=== PATIENT | female | born 1935 | race Caucasian/White ===

== ENCOUNTER → 2017-10-15 | Day surgery (SDC) | payer MEDICARE, MEDICAID ==
[~2017-10-15] VITALS: Ht 160 cm; Wt 96.3 kg
[2017-10-15] VITALS (14 sets, daily range): BP systolic 120–159; BP diastolic 53–82
[~2017-10-15] MED LIST: ACET-1025 PO; CALC-829 PO; CHOL200074 PO; CITA10TA9 PO; COENZYME Q10 PO; DEC4T PO; DOCU-28 PO; DOCU100C40 PO; ENOX40SY7 SQ; ESOM40CA PO; FLUT250D IH; FURO-150 PO; GABA-530 PO; GLIM1TAB46 PO; HC A30CR2 RC; HYDR-569 PO; LETR2.5T23 PO; LORA-512 PO; LORA10TA7 PO; MAGN250T11 PO; METO25TA6 PO; METO50TA17 PO; MIDAZolam 5mg/ml 2ml vial IV ONE; NITR0.4T48 SL; OMEG-182 PO; PROC5TAB56 PO; ROPI0.5T2 PO; ROPI1TAB4 PO; ROSU40TA PO; SPIR25TA3 PO; SUCR1TAB PO; TIZA2TAB4 PO; TRIAMCINOLONE; UBID100C16 PO; VITAMIN B COMPLEX PO; VITC500T PO; WARF5TAB7 PO; WARF6TAB PO; ZINC50TA60 PO; fentaNYL/PF 50MCG/1 ML 2ML syringe IV ONE; fentaNYL/PF 50MCG/1 ML 2ML syringe ONE; normal saline 1000ml 1,000 ML IV SCH; oxygen PO
[2017-10-15 08:29] LABS: BASOPHILS # (AUTO) 0.1 X10'3 (0-0.2); BASOPHILS % (AUTO) 0.6 % (0-1); EOSINOPHILS # (AUTO) 0.1 X10'3 (0-0.9); EOSINOPHILS % (AUTO) 1.7 % (0-6); HEMATOCRIT 35.3 % (35.0-45.0); HEMOGLOBIN 11.7 g/dl (12.0-16.0); LYMPHOCYTES # (AUTO) 0.9 X10'3 (1.1-4.8); LYMPHOCYTES % (AUTO) 11.6 % (21-51); MEAN CORPUSCULAR HEMOGLOBIN 29.6 PG (27.0-31.0); MEAN CORPUSCULAR HGB CONC 33.1 % (33.0-36.5); MEAN CORPUSCULAR VOLUME 89.4 FL (78-98); MEAN PLATELET VOLUME 8.6 FL (7.4-10.4); MONOCYTES # (AUTO) 0.6 X10'3 (0-0.9); MONOCYTES % (AUTO) 7.1 % (2-12); NEUTROPHILS # (AUTO) 6.3 X10'3 (1.8-7.7); PLATELET COUNT 166 X10'3 (140-440); RED BLOOD COUNT 3.95 X10'6 (4.20-5.60); RED CELL DISTRIBUTION WIDTH 17.4 % (11.5-14.5)
== END | disposition home or self-care (01) ==
LOC: SSTAY O 07:19
PROVIDERS: ATTEND Radiology Diagnostic Radiology
DX: C78.7 Secondary malignant neoplasm of liver and intrahepatic bile duct (principal); K76.89 Other specified diseases of liver; E11.9 Type 2 diabetes mellitus without complications; I10 Essential (primary) hypertension; K21.9 Gastro-esophageal reflux disease without esophagitis; M19.90 Unspecified osteoarthritis, unspecified site; E78.5 Hyperlipidemia, unspecified; F32.9 Major depressive disorder, single episode, unspecified; F41.9 Anxiety disorder, unspecified; I25.10 Atherosclerotic heart disease of native coronary artery without angina pectoris; Z79.82 Long term (current) use of aspirin; Z87.891 Personal history of nicotine dependence; Z79.01 Long term (current) use of anticoagulants; Z86.718 Personal history of other venous thrombosis and embolism; Z90.11 Acquired absence of right breast and nipple; Z98.890 Other specified postprocedural states; Z79.899 Other long term (current) drug therapy; Z95.0 Presence of cardiac pacemaker; Z95.1 Presence of aortocoronary bypass graft; Z95.2 Presence of prosthetic heart valve; Z72.89 Other problems related to lifestyle; Z85.3 Personal history of malignant neoplasm of breast; Z88.1 Allergy status to other antibiotic agents; Z88.8 Allergy status to other drugs, medicaments and biological substances
CPT/HCPCS: 36415; 47000; 76942; 82948; 85025; 85610; 88341; 88342; J3010; J7030; 88305

== ENCOUNTER 2017-10-25 06:31 | Day surgery (SDC) | payer MEDICARE, MEDICAID ==
[2017-10-25] VITALS (17 sets, daily range): BP systolic 136–164; BP diastolic 61–87
[~2017-10-25] VITALS: Ht 160 cm; Wt 95.8 kg
[~2017-10-25 06:31] MED LIST changes: -ACET-1025 PO; -CALC-829 PO; -DEC4T PO; -DOCU100C40 PO; -GABA-530 PO; -LORA-512 PO; -MAGN250T11 PO; -METO25TA6 PO; -MIDAZolam 5mg/ml 2ml vial IV ONE; -NITR0.4T48 SL; -ROPI1TAB4 PO; -SPIR25TA3 PO; -UBID100C16 PO; -WARF5TAB7 PO; -fentaNYL/PF 50MCG/1 ML 2ML syringe IV ONE; -fentaNYL/PF 50MCG/1 ML 2ML syringe ONE; -normal saline 1000ml 1,000 ML IV SCH; -oxygen PO
[2017-10-25 06:59] LABS: BASOPHILS % (AUTO) 0.3 % (0-1); EOSINOPHILS # (AUTO) 0.1 X10'3 (0-0.9); HEMATOCRIT 33.5 % (35.0-45.0); HEMOGLOBIN 11.3 g/dl (12.0-16.0); LYMPHOCYTES # (AUTO) 0.9 X10'3 (1.1-4.8); LYMPHOCYTES % (AUTO) 12.6 % (21-51); MEAN CORPUSCULAR HGB CONC 33.6 % (33.0-36.5); MEAN CORPUSCULAR VOLUME 89.3 FL (78-98); MONOCYTES # (AUTO) 0.6 X10'3 (0-0.9); MONOCYTES % (AUTO) 8.3 % (2-12); NEUTROPHILS # (AUTO) 5.7 X10'3 (1.8-7.7); NEUTROPHILS % (AUTO) 76.8 % (42-75); PLATELET COUNT 186 X10'3 (140-440); RED BLOOD COUNT 3.75 X10'6 (4.20-5.60); RED CELL DISTRIBUTION WIDTH 17.7 % (11.5-14.5); WHITE BLOOD COUNT 7.5 X10'3 (4.5-11.0)
[2017-10-25] MEDS ORDERED: normal saline 1000ml 1,000 ML IV SCH (07:00)
[2017-10-25 07:11] LABS: PROTHROMBIN TIME 10.3 SECONDS (9.0-12.0)
[2017-10-25] MEDS ORDERED: DEC4T PO (07:37)
[2017-10-25] MEDS ORDERED: LIDOcaine 1%/PF (10mg/ml) 5ml vial SQ ONE (08:25)
[2017-10-25] MEDS ORDERED: midazolam 2 mg/2 ml injection IV PRN (08:25)
[2017-10-25] MEDS ORDERED: fentaNYL/PF 50MCG/1 ML 2ML syringe IV PRN (08:25)
[2017-10-25] MEDS ORDERED: heparin sodium, porcine/PF 100unit/ml 5ML syringe ICATH ONE (08:25)
[2017-10-25] MEDS ORDERED: LIDOcaine 1%/PF (10mg/ml) 5ml vial ONE (08:27)
[2017-10-25] MEDS ORDERED: fentaNYL/PF 50MCG/1 ML 2ML syringe ONE (08:51)
[2017-10-25] MEDS ORDERED: midazolam 2 mg/2 ml injection ONE (08:51)
[2017-10-25] MEDS ORDERED: heparin sodium, porcine/PF 100unit/ml 5ML syringe ONE (08:55)
== END 2017-10-25 11:35 | disposition home or self-care (01) ==
LOC: SSTAY O 06:31
PROVIDERS: ATTEND Radiology Vascular & Interventional Radiology
DX: C50.911 Malignant neoplasm of unspecified site of right female breast (principal); Z95.0 Presence of cardiac pacemaker; I25.10 Atherosclerotic heart disease of native coronary artery without angina pectoris; I10 Essential (primary) hypertension; E78.4 Other hyperlipidemia; E11.9 Type 2 diabetes mellitus without complications; F41.8 Other specified anxiety disorders; Z90.11 Acquired absence of right breast and nipple; Z79.899 Other long term (current) drug therapy; Z88.1 Allergy status to other antibiotic agents; Z88.8 Allergy status to other drugs, medicaments and biological substances; Z87.891 Personal history of nicotine dependence
CPT/HCPCS: 36415; 36561; 76937; 77001; 82948; 85025; 85610; A6219; C1788; C1894; J1642; J2001; J2250; J3010; J7030; 99152; 99153; A4620

== ENCOUNTER 2018-08-02 10:32 | Emergency (ER) | payer MEDICARE, MEDICAID ==
[~2018-08-02] VITALS: Ht 160 cm; Wt 105.0 kg
[~2018-08-02 10:32] MED LIST changes: +DEC4T PO; +HYDR-4383 PO; -HYDR-569 PO; -WARF6TAB PO
[2018-08-02] MEDS ORDERED: TETanus/Pertussis (Acell)/Diphther VAC/PF (Tdap-Adult) 0.5ml syringe IM ONE (11:25)
[2018-08-02 12:03] LABS: BASOPHILS % (AUTO) 0.9 % (0-1); EOSINOPHILS # (AUTO) 0.1 X10'3 (0-0.9); EOSINOPHILS % (AUTO) 1.3 % (0-6); HEMATOCRIT 32.3 % (35.0-45.0); HEMOGLOBIN 10.7 g/dl (12.0-16.0); LYMPHOCYTES # (AUTO) 0.5 X10'3 (1.1-4.8); LYMPHOCYTES % (AUTO) 9.7 % (21-51); MEAN CORPUSCULAR HEMOGLOBIN 34.4 PG (27.0-31.0); MEAN CORPUSCULAR HGB CONC 33.1 % (33.0-36.5); MEAN CORPUSCULAR VOLUME 103.7 FL (78-98); MEAN PLATELET VOLUME 7.9 FL (7.4-10.4); MONOCYTES # (AUTO) 0.4 X10'3 (0-0.9); MONOCYTES % (AUTO) 9.2 % (2-12); NEUTROPHILS # (AUTO) 3.7 X10'3 (1.8-7.7); NEUTROPHILS % (AUTO) 78.9 % (42-75); PLATELET COUNT 160 X10'3 (140-440); RED BLOOD COUNT 3.12 X10'6 (4.20-5.60); RED CELL DISTRIBUTION WIDTH 16.3 % (11.5-14.5); WHITE BLOOD COUNT 4.7 X10'3 (4.5-11.0)
[2018-08-02 12:08] LABS: ALANINE AMINOTRANSFERASE 35 U/L (12-78); ALBUMIN 3.4 G/DL (3.4-5.0); ALBUMIN/GLOBULIN RATIO 0.9 (1.1-1.5); ALKALINE PHOSPHATASE 88 IU/L (46-116); ANION GAP 6 (8-16); ASPARTATE AMINO TRANSFERASE 37 U/L (10-37); BILIRUBIN,TOTAL 0.4 MG/DL (0.1-1.0); BLOOD UREA NITROGEN 27 MG/DL (7-18); BUN/CREATININE RATIO 15.1 (6.6-38.0); CALCIUM 9.5 MG/DL (8.5-10.1); CHLORIDE 100 MMOL/L (99-107); CREATININE 1.79 MG/DL (0.40-0.90); GLUCOSE 208 MG/DL (70-104); POTASSIUM 4.3 MMOL/L (3.5-5.1); PROTHROMBIN TIME 10.7 SECONDS (9.0-12.0); SODIUM 135 MMOL/L (135-145); TOTAL CARBON DIOXIDE 29.4 MMOL/L (24-32); TOTAL PROTEIN 7.2 G/DL (6.4-8.2); eGFR 27 ML/MIN
[2018-08-02] MEDS ORDERED: DICL100G15 TOP (12:19)
[2018-08-02 14:35] VITALS: BP 125/73
== END 2018-08-02 14:30 | disposition home or self-care (01) ==
LOC: ER 10:32
DX: S81.812A Laceration without foreign body, left lower leg, initial encounter (principal); S51.812A Laceration without foreign body of left forearm, initial encounter; S61.411A Laceration without foreign body of right hand, initial encounter; S30.1XXA Contusion of abdominal wall, initial encounter; S70.311A Abrasion, right thigh, initial encounter; I48.91 Unspecified atrial fibrillation; I25.10 Atherosclerotic heart disease of native coronary artery without angina pectoris; E78.00 Pure hypercholesterolemia, unspecified; E11.22 Type 2 diabetes mellitus with diabetic chronic kidney disease; N18.9 Chronic kidney disease, unspecified; Z98.61 Coronary angioplasty status; Z95.1 Presence of aortocoronary bypass graft; Z98.890 Other specified postprocedural states; Z95.0 Presence of cardiac pacemaker; Z88.1 Allergy status to other antibiotic agents; Z88.8 Allergy status to other drugs, medicaments and biological substances; Z79.899 Other long term (current) drug therapy; W01.0XXA Fall on same level from slipping, tripping and stumbling without subsequent striking against object, initial encounter; Y93.H2 Activity, gardening and landscaping; Y92.89 Other specified places as the place of occurrence of the external cause; Y99.8 Other external cause status
CPT/HCPCS: 36415; 71045; 74176; 80053; 85025; 85610; 90471; 90715; 93005; 99285